=== PATIENT | female | born 1940 | race Caucasian/White ===

== ENCOUNTER 2017-07-21 17:13 | Emergency (ER) | payer MEDICARE ==
[~2017-07-21] VITALS: Ht 160 cm; Wt 78.5 kg
[~2017-07-21 17:13] MED LIST: VENTOLIN HFA18 GM INH
--- NOTE | 2017-07-21 17:42 | PHYS DOC ---
Past Medical History Past Medical History: COPD Past Surgical History: Hysterectomy, Other Additional Past Surgical Histo: cataract; foot sx Alcohol Use: None Drug Use: None Adult General Chief Complaint Chief Complaint: BACK PAIN OR INJURY [facility] HPI Patient is a 76 year old female who presents with three-day history gradual onset of severe low back pain with some back spasms, no trauma no difficulty urinating no numbness or tingling or weakness in the legs; reports some abdominal distention that's not a new complaint; no prior back surgeries cholecystectomy or appendectomy. Does have some issues with constipation is and has had a total abdominal hysterectomy. She is a [employer] on oxygen; no history coronary disease or diabetes. Review of Systems Review of Systems Constitutional: Denies fever or chills [] Eyes: Denies change in visual acuity, redness, or eye pain [] HENT: Denies nasal congestion or sore throat [] Respiratory: Denies cough or shortness of breath [] Cardiovascular: No additional information not addressed in HPI [] GI: Denies abdominal pain, nausea, vomiting, bloody stools or diarrhea [] : Denies dysuria or hematuria [] Musculoskeletal: Denies back pain or joint pain [] Integument: Denies rash or skin lesions [] Neurologic: Denies headache, focal weakness or sensory changes [] Endocrine: Denies polyuria or polydipsia [] All other systems were reviewed and found to be within normal limits, except as documented in this note. Current Medications Current Medications Current Medications Medications (Trade) Dose Ordered Sig/Nancy Start Time Stop Time Status Last Admin Dose Admin Hydromorphone HCl (Dilaudid) 0.5 mg 1X ONCE 07/21/17 17:45 07/21/17 17:46 DC 07/21/17 18:06 0.5 MG Ondansetron HCl (Zofran) 4 mg 1X ONCE 07/21/17 17:45 07/21/17 17:46 DC 07/21/17 18:05 4 MG Sodium Chloride 500 ml @ 500 mls/hr 1X ONCE 07/21/17 17:45 07/21/17 18:44 DC 07/21/17 18:05 500 MLS/HR Allergies Allergies Allergies Coded Allergies Type Severity Reaction Last Updated Verified No Known Drug Allergies 08/25/16 No Physical Exam Physical Exam Constitutional: Well developed, well nourished, no acute distress, non-toxic appearance. [] HENT: Normocephalic, atraumatic, bilateral external ears normal, oropharynx moist, no oral exudates, nose normal. [] Eyes: PERRLA, EOMI, conjunctiva normal, no discharge. [] Neck: Normal range of motion, no tenderness, supple, no stridor. [] Cardiovascular:Heart rate regular rhythm, no murmur [] Lungs & Thorax: Bilateral breath sounds clear to auscultation [] Abdomen: Bowel sounds normal, soft, no tenderness, no masses, no pulsatile masses. [] Skin: Warm, dry, no erythema, no rash. [] Back: No tenderness, no CVA tenderness. [] Extremities: No tenderness, no cyanosis, no clubbing, ROM intact, no edema. [] Neurologic: Alert and oriented X 3, normal motor function, normal sensory function, no focal deficits noted. 5 motor strength in lower extremities with extension of the knee straight leg raises ankle plantar flexion and dorsiflexion of great toes; 2+ patellar reflexes bilaterally[] Psychologic: Affect normal, judgement normal, mood normal. [] Current Patient Data Vital Signs Vital Signs Date Time Temp Pulse Resp B/P (MAP) Pulse Ox O2 Delivery O2 Flow Rate FiO2 07/21/17 19:04 72 20 140/64 (89) 97 Nasal Cannula 3.0 07/21/17 17:20 98.2 98.2 Lab Values Laboratory Tests Test 07/21/17 17:42 07/21/17 18:03 White Blood Count 8.7 x10^3/uL (4.0-11.0) Red Blood Count 3.66 x10^6/uL (3.50-5.40) Hemoglobin 11.3 g/dL (12.0-15.5) L Hematocrit 33.9 % (36.0-47.0) L Mean Corpuscular Volume 93 fL (79-100) Mean Corpuscular Hemoglobin 31 pg (25-35) Mean Corpuscular Hemoglobin Concent 33 g/dL (31-37) Red Cell Distribution Width 13.4 % (11.5-14.5) Platelet Count 252 x10^3/uL (140-400) Neutrophils (%) (Auto) 73 % (31-73) Lymphocytes (%) (Auto) 18 % (24-48) L Monocytes (%) (Auto) 6 % (0-9) Eosinophils (%) (Auto) 3 % (0-3) Basophils (%) (Auto) 1 % (0-3) Neutrophils # (Auto) 6.4 x10^3uL (1.8-7.7) Lymphocytes # (Auto) 1.5 x10^3/uL (1.0-4.8) Monocytes # (Auto) 0.5 x10^3/uL (0.0-1.1) Eosinophils # (Auto) 0.2 x10^3/uL (0.0-0.7) Basophils # (Auto) 0.0 x10^3/uL (0.0-0.2) Sodium Level 141 mmol/L (136-145) Potassium Level 4.0 mmol/L (3.5-5.1) Chloride Level 102 mmol/L (98-107) Carbon Dioxide Level 32 mmol/L (21-32) Anion Gap 7 (6-14) Blood Urea Nitrogen 14 mg/dL (7-20) Creatinine 0.4 mg/dL (0.6-1.0) L Estimated GFR (Cockcroft-Gault) 156.0 BUN/Creatinine Ratio 35 (6-20) H Glucose Level 114 mg/dL (70-99) H Calcium Level 8.9 mg/dL (8.5-10.1) Total Bilirubin 0.2 mg/dL (0.2-1.0) Aspartate Amino Transferase (AST) 14 U/L (15-37) L Alanine Aminotransferase (ALT) 15 U/L (14-59) Alkaline Phosphatase 84 U/L (46-116) Total Protein 7.5 g/dL (6.4-8.2) Albumin 3.6 g/dL (3.4-5.0) Albumin/Globulin Ratio 0.9 (1.0-1.7) L Urine Collection Type Void Urine Color Straw Urine Clarity Clear Urine pH 6.5 Urine Specific [place] 1.010 Urine Protein Negative mg/dL (NEG-TRACE) Urine Glucose (UA) Negative mg/dL (NEG) Urine Ketones (Stick) Negative mg/dL (NEG) Urine Blood Negative (NEG) Urine Nitrite Negative (NEG) Urine Bilirubin Negative (NEG) Urine Urobilinogen Dipstick 0.2 mg/dL (0.2 mg/dL) Urine Leukocyte Esterase Negative (NEG) Urine RBC Occ /HPF (0-2) Urine WBC 0 /HPF (0-4) Urine Squamous Epithelial Cells Mod /LPF Urine Bacteria Moderate /HPF (0-FEW) Laboratory Tests 07/21/17 17:42 Laboratory Tests 07/21/17 17:42 EKG EKG [] Radiology/Procedures Radiology/Procedures CT scan abdomen and pelvis showed no acute abnormality no obstruction no fecal impaction or radiology report CT scan lumbar spine showed no acute fracture spinal stenosis or emergent abnormality per radiology report[] Course & Med Decision Making Course & Med Decision Making Pertinent Labs and Imaging studies reviewed. (See chart for details) [Patient is neurologically intact for given her age we will do a CT scan of abdomen and pelvis to exclude fecal impaction AAA or renal pathology and we will do a CT scan lumbar spine to exclude spinal stenosis or compression fractures. In the meantime we will treat her symptoms. Reexamination at 6:30 PM patient feels improved and has a normal neurologic exam CT scans were unremarkable patient stable for outpatient follow-up.] Dragon Disclaimer Dragon Disclaimer This electronic medical record was generated, in whole or in part, using a voice recognition dictation system. Departure Departure Impression: Primary Impression: Acute low back pain Disposition: HOME, SELF-CARE Condition: STABLE Referrals: LILI DENNIS MD (PCP) Patient Instructions: Back Pain, Adult, [facility]oc-bs[facility]cs[facility] Scripts Oxycodone/Apap 5-325 (PERCOCET 5-325 MG TABLET) 1 Each Tablet 1 TAB PO PRN Q6HRS Y for PAIN, #10 TAB 0 Refills Prov: DMITRY CALZADA MD 07/21/17 DMITRY CALZADA MD Jul 21, 2017 17:42
[2017-07-21] MEDS ORDERED: HYDROmorphone 2 MG/ML VIAL IV ONE (17:45)
[2017-07-21] MEDS ORDERED: IV NORMAL SALINE 500ML BAG 500 ML IV ONE (17:45)
[2017-07-21] MEDS ORDERED: ONDANSETRON PF 4 MG/2 ML VIAL. IV ONE (17:45)
[2017-07-21 17:50] LABS: BASO % 1 % (0-3); EOS % 3 % (0-3); HEMATOCRIT 33.9 % (36.0-47.0); HEMOGLOBIN 11.3 g/dL (12.0-15.5); LYMPH # 1.5 x10^3/uL (1.0-4.8); LYMPH % 18 % (24-48); MEAN CORPUSCULAR HEMOGLOBIN 31 pg (25-35); MEAN CORPUSCULAR HGB CONC 33 g/dL (31-37); MEAN CORPUSCULAR VOLUME 93 fL (79-100); MONO % 6 % (0-9); NEUT % 73 % (31-73); PLATELET COUNT 252 x10^3/uL (140-400); RED BLOOD COUNT 3.66 x10^6/uL (3.50-5.40); RED CELL DISTRIBUTION WIDTH 13.4 % (11.5-14.5); WHITE BLOOD COUNT 8.7 x10^3/uL (4.0-11.0)
[2017-07-21 18:04] LABS: CALCIUM 8.9 mg/dL (8.5-10.1); CREATININE 0.4 mg/dL (0.6-1.0)
[2017-07-21 18:10] LABS: ALBUMIN 3.6 g/dL (3.4-5.0); ALBUMIN/GLOBULIN RATIO 0.9 (1.0-1.7); TOTAL BILIRUBIN 0.2 mg/dL (0.2-1.0); TOTAL PROTEIN 7.5 g/dL (6.4-8.2)
[2017-07-21 18:14] LABS: BILIRUBIN,URINE NEGATIVE (NEG); GLUCOSE,URINE NEGATIVE (NEG); NITRITE,URINE NEGATIVE (NEG); PH,URINE 6.5; PROTEIN,URINE NEGATIVE (NEG-TRACE); UROBILINOGEN,URINE 0.2 mg/dL (0.2 mg/dL)
[2017-07-21 18:21] LABS: BACTERIA,URINE MODERATE /HPF (0-FEW); RBC,URINE OCC /HPF (0-2); SQUAMOUS EPITHELIAL CELL,UR MOD /LPF; WBC,URINE 0 /HPF (0-4)
--- NOTE | 2017-07-21 18:26 | RAD ---
CT LUMBAR SPINE RECONSTRUCTION, CT ABDOMEN PELVIS WO CONTRAST dated 07/21/2017 5:50 PM Indication: Increasing back pain.SEVERE WORSENING LBP NO CONTRAST CT A/P ALSO . Comparison: No comparison is available. Technique: Contiguous axial imaging of the abdomen and pelvis performed without the administration of intravenous contrast. In addition, axial, coronal and sagittal reconstructions the lumbar spine. One or more of the following individualized dose reduction techniques were utilized for this examination: 1. Automated exposure control 2. Adjustment of the mA and/or kV according to patient size 3. Use of iterative reconstruction technique Findings: Limited images of lung bases show linear bands of increased density in the lower lobes, likely scar or atelectasis. Heart size within normal limits. No pleural or pericardial effusion. Coronary artery calcifications. Small hiatal hernia. Solid abdominal viscera not well evaluated in the absence of contrast material. No apparent attenuation abnormality of the liver or spleen. Gallbladder unremarkable. Pancreas adrenal glands and kidneys are unremarkable. No stone or hydronephrosis. Unopacified GI tract is normal in caliber and contour. No focal bowel wall thickening. No inflammatory stranding in the mesentery. The appendix is normal in caliber. No ascites or lymphadenopathy. Images of pelvis show nondistended urinary bladder. Uterus is surgically absent. No free fluid or lymphadenopathy. Images of the lumbar spine show grade 1 anterolisthesis of L4 on L5 and L5 on S1. Sagittal alignment is otherwise anatomic. There is moderate dextroconvex scoliotic curvature. Prominent Schmorl's node at T11 and T12. Mild hypertrophic change of the superior and inferior endplates throughout. Moderate disc space narrowing at L5-S1 and L2-L3. Multilevel facet arthropathy, most severe at L4-L5 and L5-S1. There is resultant mild right foraminal stenosis at L5-S1 and mild left foraminal stenosis at L4-L5. Mild broad-based posterior bulging at L3-L4, L4-L5 and L5-S1. Mild central stenosis at these levels. Impression abdomen pelvis: 1. No acute abnormality of abdomen or pelvis. Normal appendix. 2. Status post hysterectomy. 3. Small hiatal hernia. Impression lumbar spine: 1. No evidence of fracture or malalignment. 2. Mild to moderate multilevel spondylosis with moderate dextroconvex scoliotic curvature. Electronically signed by: Ja Nur MD (07/21/2017 6:23 PM) [place] [id number]
[2017-07-21] MEDS ORDERED: OXYC-323 PO (18:40)
[2017-07-21 19:04] VITALS: BP 140/64
== END 2017-07-21 19:10 | disposition home or self-care (01) ==
LOC: ER 17:13
DX: M54.5 Low back pain (principal); R14.0 Abdominal distension (gaseous); K59.00 Constipation, unspecified; J44.9 Chronic obstructive pulmonary disease, unspecified; Z90.710 Acquired absence of both cervix and uterus
CPT/HCPCS: 36415; 74176; 80053; 81001; 85025; 87086; 96361; 96374; 96375; 99285; J1170; J2405; J7040

== ENCOUNTER 2018-02-17 11:46 | Emergency (ER) | payer MEDICARE ==
[2018-02-17 12:57] LABS: ADD MAN DIFF? NO
[2018-02-17 13:02] LABS: BASO % 0 % (0-3); EOS # 0.1 x10^3/uL (0.0-0.7); EOS % 2 % (0-3); HEMATOCRIT 35.5 % (36.0-47.0); HEMOGLOBIN 12.1 g/dL (12.0-15.5); LYMPH # 1.3 x10^3/uL (1.0-4.8); LYMPH % 17 % (24-48); MEAN CORPUSCULAR HEMOGLOBIN 31 pg (25-35); MEAN CORPUSCULAR HGB CONC 34 g/dL (31-37); MEAN CORPUSCULAR VOLUME 90 fL (79-100); MONO # 0.5 x10^3/uL (0.0-1.1); MONO % 7 % (0-9); NEUT # 5.4 x10^3uL (1.8-7.7); NEUT % 74 % (31-73); PLATELET COUNT 245 x10^3/uL (140-400); RED BLOOD COUNT 3.92 x10^6/uL (3.50-5.40); WHITE BLOOD COUNT 7.3 x10^3/uL (4.0-11.0)
[2018-02-17 13:20] LABS: ANION GAP 8 (6-14); BLOOD UREA NITROGEN 13 mg/dL (7-20); BUN/CREATININE RATIO 26 (6-20); CALCIUM 9.3 mg/dL (8.5-10.1); CARBON DIOXIDE 33 mmol/L (21-32); CHLORIDE 101 mmol/L (98-107); CREATININE 0.5 mg/dL (0.6-1.0); GFR 120.3; GLUCOSE 104 mg/dL (70-99); POTASSIUM 4.1 mmol/L (3.5-5.1); SODIUM 142 mmol/L (136-145)
[2018-02-17 13:21] LABS: TROPONINI < 0.017 ng/mL (0.000-0.055)
[2018-02-17 13:24] LABS: ALBUMIN 3.9 g/dL (3.4-5.0); ALK PHOS 65 U/L (46-116); ALT (SGPT) 21 U/L (14-59); AST (SGOT) 21 U/L (15-37); MAGNESIUM 2.2 mg/dL (1.8-2.4); TOTAL BILIRUBIN 0.3 mg/dL (0.2-1.0); TOTAL PROTEIN 7.8 g/dL (6.4-8.2)
[2018-02-17 13:29] LABS: THYROID STIM HORMONE (TSH) 0.995 uIU/mL (0.358-3.74)
[2018-02-17 13:33] LABS: NT-PRO BNP 263 pg/mL (0-449)
[2018-02-17 13:33] LABS: CKMB INDEX 2.2 % (0-4); CKMB MASS 2.1 ng/mL (0.0-3.6); CREATINE KINASE 95 U/L (26-192)
[2018-02-17] MEDS ORDERED: CONTRAST GIVEN. MC (14:00)
[2018-02-17 14:12] LABS: BILIRUBIN,URINE NEGATIVE (NEG); CLARITY,URINE CLEAR; COLOR,URINE YELLOW; GLUCOSE,URINE NEGATIVE (NEG); NITRITE,URINE NEGATIVE (NEG); PROTEIN,URINE NEGATIVE (NEG-TRACE); UROBILINOGEN,URINE 0.2 mg/dL (0.2 mg/dL)
[2018-02-17 14:17] LABS: FECAL OB PT POSITIVE (NEG); NEG OBC FOB NEG; POS OBC FOB POS
[2018-02-17] MEDS: IOHEXOL 300 MG/ML 100ML VIAL. IV (14:19)
[2018-02-17 14:25] LABS: BACTERIA,URINE 0 /HPF (0-FEW); SQUAMOUS EPITHELIAL CELL,UR MOD /LPF
== END 2018-02-17 15:31 | disposition home or self-care (01) ==
LOC: ER 11:46
DX: K62.5 Hemorrhage of anus and rectum (principal); J44.9 Chronic obstructive pulmonary disease, unspecified; Z90.710 Acquired absence of both cervix and uterus
CPT/HCPCS: 36415; 74177; 80053; 81001; 82274; 82553; 83735; 83880; 84443; 84484; 85025; 86850; 86900; 86901; 93005; 99285-25; Q9967

== ENCOUNTER → 2019-09-19 | Outpatient (CLI) | payer MEDICARE ==
[2019-07-31 11:00] VITALS: BP 107/63
[~2019-09-19] MED LIST changes: +ACET500T68 PO; +ATOR10TA60 PO; +BUDE0.5A NEB; +DICL100G18 TP; +FAMO20TA5 PO; +GUAI5SYR PO; +HYDR-2761 PO; +IPRA3AMP29 NEB; +LEVO250T7 PO; +METO25TA4 PO; +OXYC1TAB15 PO; +ROPI0.25 PO
--- NOTE | 2019-09-19 16:29 | KCIC ---
Examination: Right Lower Extremity Venous Doppler Ultrasound History: Calf pain Comparison: None Procedure: Ash scale, color flow 2D and spectal waveform analysis images are obtained with and without compression in the area of the common femoral vein, superficial femoral vein - femoral vein junction, main femoral vein (superficial femoral vein) and popliteal vein. Veins of the proximal calf are also imaged. Findings: There is normal duplex flow, color flow and compressibility of all visualized vein segments. No evidence of deep venous thrombus is present. The calf veins are difficult to visualize. Mild soft tissue edema identified in the calf region. Impression: No evidence of DVT in the right lower extremity venous system. Electronically signed by: Jasiel Carrillo MD (09/19/2019 4:26 PM) [id number]
== END | disposition home or self-care (01) ==
LOC: KCIC US 15:37
PROVIDERS: ATTEND Nurse Practitioner Family
DX: M79.89 Other specified soft tissue disorders (principal); M79.661 Pain in right lower leg
CPT/HCPCS: 93971